=== PATIENT | male | born 1950 | race Caucasian/White ===

== ENCOUNTER 2023-03-13 05:45 | Day surgery (SDC) | payer OTHER ==
[~2023-03-13] VITALS: Ht 162.6 cm; Wt 77.1 kg
[~2023-03-13 05:45] MED LIST: BREO ELLIPTA 21 EACH IH; CLONAZEPAM1 MG PO; CRESTOR20 MG PO; LOSARTAN-HCTZ1 EAC2 PO; SYNTHROID50 MCG PO; TAMS0.4C PO; ZYRTEC10 MG PO
[2023-03-13] MEDS ORDERED: TRAM1TAB98 PO (12:08)
[2023-03-13] MEDS ORDERED: POLY119PG PO (12:09)
[2023-03-13] MEDS ORDERED: NEURONTIN300 MG PO (12:09)
== END 2023-03-13 15:10 | disposition home or self-care (01) ==
LOC: CIR.AMB 05:45
PROVIDERS: ATTEND Surgery
DX: K42.0 Umbilical hernia with obstruction, without gangrene (principal); Z20.822 Contact with and (suspected) exposure to COVID-19; Z88.0 Allergy status to penicillin
CPT/HCPCS: 49594; C1781